=== PATIENT | female | born 1950 | race Caucasian/White ===

== ENCOUNTER 2024-01-07 11:02 | Inpatient (IN) | payer OTHER, SELFPAY ==
[2024-01-05] VITALS (7 sets, daily range): BP systolic 122–159; BP diastolic 65–100; BMI 33.5; BMI 33.4
[2024-01-05 15:42] LABS: % Basophils 1.3 % (0-2); % Eosinophils 2.1 % (0-6); % Immature Granulocytes 0.9 % (0-0.5); % Monocytes 8.4 % (1.7-9.3); % Neutrophils 75.3 % (42.2-75.2); Absolute Basophils 0.1 10^3/uL (0-0.2); Absolute Eosinophils 0.2 10^3/uL (0-0.7); Absolute Immature Granulocytes 0.1 10^3/uL (0-0.05); Absolute Lymphocytes 1.1 10^3/uL (1.2-3.4); Absolute Monocytes 0.8 10^3/uL (0.1-0.6); Absolute Neutrophils 6.8 10^3/uL (1.4-6.5); Hematocrit 41.7 % (37.0-47.0); Mean Corp Hgb Conc. 33.6 g/dL (33.0-37.0); Mean Corpuscular Hgb 29.4 pg (27.0-31.0); Mean Corpuscular Volume 87.6 fL (81.0-99.0); Mean Platelet Volume 9.8 fL (7.4-10.4); Nucleated Red Blood Cells % 0 %; Platelet Count 279 10^3/uL (130-400); Red Blood Cell Count 4.76 10^6/uL (4.20-5.40); Red Cell Dist. Width 12.7 % (11.5-14.5); White Blood Cell Count 9.1 10^3/uL (4.8-10.8)
[2024-01-05 16:02] LABS: ALT (SGPT) 18 U/L (0-35); AST (SGOT) 24 U/L (14-36); Albumin 3.9 g/dl (3.5-5.0); Alkaline Phosphatase 129 U/L (38-126); Blood Urea Nitrogen 9 mg/dl (7-17); Carbon Dioxide 26 mmol/L (22-30); Chloride 106 mmol/L (98-107); Glucose 86 mg/dl (70-99); Potassium 4.3 mmol/L (3.5-5.1); Sodium 143 mmol/L (135-145); Total Bilirubin 0.6 mg/dl (0.2-1.3); Total Protein 6.6 g/dl (6.3-8.2); eGFR > 60.00
[2024-01-05 16:07] LABS: Lactic Acid 0.8 mmol/L (0.7-2.0)
[2024-01-05 16:12] LABS: NT-proBNP 574 pg/ml
[2024-01-05] MEDS: LASIX 40 MG IV (18:43)
--- NOTE | 2024-01-05 19:16 | ED.GENMED ---
History of Present Illness
General
Chief Complaint: Swelling
Time Seen by Provider: 01/05/24 17:28
History of Present Illness
History of Present Illness:
73-year-old female with history of hypertension, hyperlipidemia, and chronic lower extremity edema presents to the emergency department for evaluation of worsening swelling and difficulty walking. She admits to poor compliance with her Lasix, it is
prescribed as 40 mg daily however she admits that she takes it less than twice weekly. She is having increased difficulty with ambulation and is falling recently. Daughter is also concerned about cognitive decline. No fevers or chills, no
shortness of breath
Past History
Past History
ED Past Medical History: HTN, Hypercholesterolemia and Other (Arthritis, restless leg syndrome); Negative Arrthythmia, Asthma or CAD
ED Past Surgical History: Cholecystectomy, Orthopedic (B/L hip/knee replacements) and Other (Gastric bypass)
Social History
Tobacco: Non-smoker
Alcohol: None
Personal:
Living: alone
Employment: Employed
Family History
Family History: Other (sister with carcinoma of the appendix ); Negative CAD
Review of Systems
Review of Systems
Allergies reviewed?: Yes
All Other Systems: ROS reviewed and negative except as documented in HPI and ROS
Phy Exam
Physical Exam
Physical Exam:
GEN: Well appearing, NAD, WDWN
HEENT: Oral mucosa moist, no scleral icterus
Cardiac: Regular rate
Lung: No respiratory distress, no tachypnea
MSK: Marked edema bilateral lower extremities with circumferential erythema likely venous stasis dermatitis, superficial ulcerations to the posterior aspects of both legs
Skin: Good color, no pallor or jaundice, no rashes
Neuro: AO x3, moves all extremities freely
Psych: Calm, cooperative
Scores
Heart Failure Risk
Heart Failure Risk Score: Not Applicable
Course
Orders/Labs/Results
Orders:
Orders
01/05/24 15:28
BNP [NT-proBNP] Urgent
Complete Blood Count/With Diff Urgent
Comprehensive Metabolic Panel Urgent
Lactic Acid Urgent
01/05/24 18:26
Furosemide [Lasix] 40 mg IV NOW STA
Abnormal Lab Results
01/05/24
15:28
Abs Immat Gran (auto) 0.1 H 10^3/uL
(0-0.05)
Absolute Neuts (auto) 6.8 H 10^3/uL
(1.4-6.5)
Absolute Lymphs (auto) 1.1 L 10^3/uL
(1.2-3.4)
Absolute Monos (auto) 0.8 H 10^3/uL
(0.1-0.6)
Immature Gran % 0.9 H %
(0-0.5)
Neutrophils % 75.3 H %
(42.2-75.2)
Lymphocytes % 12.0 L %
(20.5-51.1)
Alkaline Phosphatase 129 H U/L
(38-126)
01/05/24 15:28
01/05/24 15:28
Vital Signs
Initial and Last Documented VS:
Initial Vital Signs
Temp Pulse Resp BP Pulse Ox
98.3 F 71 18 142/100 98
01/05/24 15:21 01/05/24 15:21 01/05/24 15:21 01/05/24 15:21 01/05/24 15:21
Last Documented Vital Signs
Temp Pulse Resp BP Pulse Ox
98.3 F 76 18 159/68 100
01/05/24 15:21 01/05/24 18:43 01/05/24 18:02 01/05/24 18:43 01/05/24 18:05
MDM/Problems Addressed
MDM/Problems Addressed:
Patient has marked edema bilateral lower extremities. There are superficial wounds but no clear signs of cellulitis, I suspect the erythema is venous stasis dermatitis. This is all a product of her medication noncompliance. While she is medically
stable she is quite functionally impaired due to the degree of edema and thus is appropriate for admission for IV Lasix and PT/OT
*Critical Care Note
Total Time (30-74mins, 75-104mins- exclusive of procedures): Not Applicable
ED Attending Note
-
Portions of this chart may have been created with voice recognition software.� Occasional wrong word or��sound alike� substitutions may have occurred due to the inherent limitations of voice recognition software.
Discharge Plan
Departure
Patient Disposition: Admit
Date of Disposition: 01/05/24
Time of Disposition: 19:19
Admit to: Med/Surg
Presentation/result/management discussed w/ accepting MD/DO: Hospitalist
Discharge Problem:
Bilateral edema of lower extremity, Ambulatory dysfunction
Prescriptions:
No Action
furosemide 40 mg Tablet
40 mg PO DAILY
atorvastatin 20 mg Tablet
20 mg PO DAILY
gabapentin 400 mg Capsule
400 mg PO HS
amlodipine 5 mg Tablet
5 mg PO DAILY
cyanocobalamin (vitamin B-12) 500 mcg Tablet
500 mcg PO DAILY
sertraline 25 mg Tablet
25 mg PO DAILY
aspirin 81 mg Tablet
81 mg PO DAILY
atenolol 50 mg Tablet
50 mg PO HS
cholecalciferol (vitamin D3) 25 mcg (1,000 unit) Tablet
25 mcg PO DAILY
melatonin 10 mg Tablet
10 mg PO HS PRN (Reason: insomnia)
potassium chloride 20 mEq Tablet Extended Release
20 meq PO BID
Referrals:
KARIN LYON [Other]
Interventions
Interventions:
*Risk Screen - Suicide Last Done: 01/05/24 18:02
*General Assessment Last Done: 01/05/24 15:21
*Neglect/Abuse Screening Last Done: 01/05/24 18:02
ED- Fall Risk Assessment Last Done: 01/05/24 18:02
*ED COVID-19 Vaccine History Last Done: 01/05/24 18:02
ED- Cardiac Assessment Last Done: 01/05/24 18:02
ED- Pulmonary Assessment Last Done: 01/05/24 18:02
ED-Skin Assessment Last Done: 01/05/24 18:02
Discharge Date and Time
Print Language: ROMANSH
--- NOTE | 2024-01-05 19:32 | HPS.HSE ---
Family Physician
-
Family Physician: KARIN LYON
Chief Complaint
-
Ambulatory dysfunction, lower extremity edema
History of Present Illness
This is a 73-year-old female with past medical history of hypertension, hyperlipidemia, obesity, chronic lower extremity edema who presents emergency department with increasing leg swelling and weeping.
Patient has a past medical history of hypertension hyperlipidemia TIA and and since that the begin of the years chronic lower extremity edema. She reports that workup as being negative for congestive heart failure and for venous thromboembolism.
She denies having any change in the redness in the legs. There is no warmth. She denies any fevers or chills. Patient's family reports that she has not been compliant with diuretic regimen for lymphedema. Patient is noncompliant due to of the
lifestyle changes associated with the diuresis. She is unable to describe any significant changes in weight. She reports that she usually takes diuretics once or twice a week. Over the last few days she has not been able to ambulate due to the
swelling and weeping. She has physical therapy at home. She denies orthopnea PND shortness of breath at rest. She denies chest pain palpitations nausea vomiting.
Intermittent department the patient was afebrile, blood pressure was 160/68 pulse rate 76 and she was at 90% on room air. CBC was unremarkable. Likewise chemistries were unremarkable
Medical History
Past Medical History
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
Additional Past Medical History:
Chronic LE edema
Restless Leg syndrome
Past Surgical History: Reports Cholecystectomy and Orthopedic (TKA)
Additional Past Surgical History:
Gastric Bypass
Social History
Tobacco: Non-smoker
Alcohol: None
Drug: None
Personal:
Living: With Family
Employment: Employed
Family History
Family History: Not pertinent
Allergies / Home Medications
Allergies reflects when Allergies were last updated in [facility].
Home Medications with original date entered in [facility]
Allergy/Medication List:
Allergies
Allergy/AdvReac Type Severity Reaction Status Date / Time
No Known Allergies Allergy Verified 01/05/24 15:21
Home Medications
amlodipine 5 mg tablet 5 mg PO DAILY 01/05/24
aspirin 81 mg tablet 81 mg PO DAILY 01/05/24
atenolol 50 mg tablet 50 mg PO HS 01/05/24
atorvastatin 20 mg tablet 20 mg PO DAILY 01/05/24
cholecalciferol (vitamin D3) 25 mcg (1,000 unit) tablet 25 mcg PO DAILY 01/05/24
cyanocobalamin (vitamin B-12) 500 mcg tablet 500 mcg PO DAILY 01/05/24
furosemide 40 mg tablet 40 mg PO DAILY 01/05/24
gabapentin 400 mg capsule 400 mg PO HS 01/05/24
melatonin 10 mg tablet 10 mg PO HS PRN insomnia 01/05/24
potassium chloride 20 mEq tablet,extended release 20 meq PO BID 01/05/24
sertraline 25 mg tablet 25 mg PO DAILY 01/05/24
Review of Systems
-
Constitutional: Reports No Symptoms
EENT: Reports No Symptoms
Respiratory: Reports No Symptoms
Cardiac: Reports No Symptoms
Abdomen/GI: Reports No Symptoms
: Reports No Symptoms
Musculoskeletal: Reports Edema
Skin: Reports No Symptoms
Neurological: Reports No Symptoms
Endocrine: Reports No Symptoms
Hematologic/Lymphatic: Reports No Symptoms
Psych: Reports No Symptoms
Physical Exam
Vital Signs
Vital Signs
Temp Pulse Resp BP Pulse Ox
98.3 F 76 18 159/68 100
01/05/24 15:21 01/05/24 18:43 01/05/24 18:02 01/05/24 18:43 01/05/24 18:05
Physical Exam
General: Well Developed, Well Nourished, No Apparent Distress and Comfortable
HEENT: NormoCephalic, Anicteric, Moist mucous membranes and Atraumatic
Respiratory: Clear
Cardiac: S1/S2 and Regular Rhythm
Breast: Deferred by me
GI: Soft, Non Tender, Non Distended and Normal Bowel Sounds
Rectal: Deferred by Provider
Genito-urinary: Clear Urine
Musculoskeletal: No Clubbing, No Cyanosis, Edema, Left Lower Extremity (2+pitting and non-pitting with chronic skin changes) and Edema, Right Lower Extremity (2+ pitting and non-pitting, chronic skin changes)
Skin: Warm
Neuro: AO x 3
Hematologic/Lymphatic: No Lymphadenopathy
Psych: Calm
Laboratory Results
-
01/05/24 15:28
01/05/24 15:
Laboratory Results
Lactic Acid 0.8 mmol/L (0.7-2.0) 01/05/24 15:
Total Bilirubin 0.6 mg/dl (0.2-1.3) 01/05/24 15:28
AST 24 U/L (14-36) 01/05/24 15:
ALT 18 U/L (0-35) 01/05/24 15:
Alkaline Phosphatase 129 U/L (38-126) H 01/05/24 15:28
Data Reviewed
-
Lab Data: Labs Reviewed by me
Old Records: Reviewed
Impression/Plan
-
IMPRESSION:
73 y.o with chronic lymphedema non-compliant with medication regimen coming in with worsening edema, weeping and ambulatory dysfunction. No known history of CHF. Normal renal function. No liver disease. No h/o DVT.
PLAN:
1. Lymphedema - Patient non-compliant. She is hypervolemic and hypertensive. No CHF. Started about a year ago.
- admit to med/surg
- lasix 20mg iv q 12 with monitoring of daily weights and i/os
- 4 g sodium restriction
- daily k supplementation
- follow daily potassium and creatinine level
- elevate legs
- compression socks
- PT evaluation
2. HTN - Uncontrolled, non-compliant
- continue atenolol
- stopped amlodipine, started losartan due to swelling
3.TIA/CVA
- continue aspirin/statin
DVT PPX - lovenox sq
Code Status - Full Code
[2024-01-05] MEDS: KCL 20 MEQ PO (20:52)
--- NOTE | 2024-01-05 22:00 | PTCARENOTE ---
Pt received from ED on stretcher. Pt walked to bed with 1x assist with walker. Pt was informed about the use of the call carlson and the bed rails. Call carlson is in reach. Care is ongoing.
[2024-01-05] MEDS: NEURONTIN 400 MG PO (22:10)
[2024-01-05] MEDS: TENORMIN 50 MG PO (22:10)
--- NOTE | 2024-01-06 03:01 | PTCARENOTE ---
On admission, pt has reddness in skin folds and groin. Reached out to [facility], order placed for desenex by this RN.
[2024-01-06 07:00] VITALS: BP 132/65
[2024-01-06] MEDS: VITAMIN B-12 500 MCG PO (08:51)
[2024-01-06] MEDS: COZAAR 25 MG PO (08:52)
[2024-01-06] MEDS: ZOLOFT 25 MG PO (08:52)
[2024-01-06] MEDS: LOW STRENGTH ASPIRIN 81 MG PO (08:52)
[2024-01-06] MEDS: VITAMIN D3 (cholecalciferol) 25 MCG PO (08:52)
[2024-01-06] MEDS: LIPITOR 20 MG PO (08:52)
[2024-01-06] MEDS: KCL 20 MEQ PO ×2 (08:52→21:01)
[2024-01-06] MEDS: LASIX 20 MG IV ×2 (08:53→16:35)
[2024-01-06] MEDS: DESENEX/MITRAZOL/ZEASORB 1 APPLIC TOPICAL ×2 (08:58→21:01)
[2024-01-06 09:53] LABS: Blood Urea Nitrogen 9 mg/dl (7-17); Calcium 9.1 mg/dl (8.4-10.2); Carbon Dioxide 30 mmol/L (22-30); Chloride 102 mmol/L (98-107); Estimated Creatinine Clearance 81 ml/min; Glucose 90 mg/dl (70-99); Magnesium 2.1 mg/dl (1.6-2.3); Potassium 4.4 mmol/L (3.5-5.1); Sodium 143 mmol/L (135-145); eGFR > 60.00
[2024-01-06 10:16] VITALS: BP 146/83; PULSE 53; O2SAT 97
--- NOTE | 2024-01-06 12:40 | W.PN.HOSP.TC ---
Today's Communication/Plan
-
iv diuresis
wound care
SNF planning
Assessment / Plan
Assessment / Plan
Physical Exam
General: Well Developed, Well Nourished, No Apparent Distress and Comfortable
HEENT: NormoCephalic, Anicteric, Moist mucous membranes and Atraumatic
Respiratory: Clear
Cardiac: S1/S2 and Regular Rhythm
Breast: Deferred by me
GI: Soft, Non Tender, Non Distended and Normal Bowel Sounds
Rectal: Deferred by Provider
Genito-urinary: Clear Urine
Musculoskeletal: No Clubbing, No Cyanosis, Edema, Left Lower Extremity (2+pitting and non-pitting with chronic skin changes) and Edema, Right Lower Extremity (2+ pitting and non-pitting, chronic skin changes)
Skin: Warm
Neuro: AO x 3
Hematologic/Lymphatic: No Lymphadenopathy
Psych: Calm
73 y.o with chronic lymphedema non-compliant with medication regimen coming in with worsening edema, weeping and ambulatory dysfunction. No known history of CHF. Normal renal function. No liver disease. No h/o DVT.
PLAN:
#Lymphedema - Patient non-compliant. She is hypervolemic and hypertensive. No CHF. Started about a year ago.
-weeping
- lasix 20mg iv q 12 with monitoring of daily weights and i/os
- 4 g sodium restriction
- daily k supplementation
- follow daily potassium and creatinine level
- elevate legs
- compression socks
- wound care
- PT evaluation - SNF
-stop amlodipine
# HTN - Uncontrolled, non-compliant
- continue atenolol
- stopped amlodipine, started losartan due to swelling
3.TIA/CVA
- continue aspirin/statin
DVT PPX - lovenox sq
Code Status - Full Code
Anticipated Discharge: 24 - 48 hours
Subjective/Interval History
-
Date of Service: January 06, 2024
no acute events
Objective Data
-
Labs:
Laboratory Results
01/06/24
08:24
Sodium 143
Potassium 4.4
Chloride 102
Carbon Dioxide 30
BUN 9
Creatinine 0.7
Glucose 90
Calcium 9.1
Vital Signs:
Vital Signs
Temp Pulse Resp BP Pulse Ox
97.7 F 57 16 132/65 100
01/06/24 07:00 01/06/24 08:52 01/06/24 07:00 01/06/24 08:52 01/06/24 07:00
I&O
01/05/24 01/06/24 01/07/24
06:59 06:59 06:59
Intake Total 200 / 200
Output Total 2049
Balance -1849 / -1849
Review of Systems
-
History Source: Patient
All other systems: Not reviewed unless documented
Data Reviewed
-
Labs: Labs Reviewed by me
--- NOTE | 2024-01-06 14:55 | CM ---
Addendum entered by Francia Cooney RN 01/06/24 15:06:
[facility] letter given pt declined to sign,
Original Note:
Alert awake oriented patient who lives with her son Kenroy in a condo with one step to enter.She said she is independent in driving and in all activities of daily living.Will need PT for dc plan.She uses a walker .
Never had [facility]
Pharmacy [facility]
PCP DR Leighton Garcia
PLAN will need PT for dc planning
[2024-01-06 15:00] VITALS: BP 105/66
[2024-01-06] MEDS: LOVENOX 40 MG SC (17:09)
[2024-01-06] MEDS: TENORMIN 50 MG PO (21:01)
[2024-01-06] MEDS: NEURONTIN 400 MG PO (21:02)
[2024-01-06 23:02] VITALS: BP 102/54
[2024-01-07 06:49] LABS: Hematocrit 41.3 % (37.0-47.0); Mean Corp Hgb Conc. 33.9 g/dL (33.0-37.0); Mean Corpuscular Hgb 30.4 pg (27.0-31.0); Mean Corpuscular Volume 89.6 fL (81.0-99.0); Mean Platelet Volume 10.3 fL (7.4-10.4); Platelet Count 267 10^3/uL (130-400); Red Blood Cell Count 4.61 10^6/uL (4.20-5.40); Red Cell Dist. Width 12.7 % (11.5-14.5); White Blood Cell Count 9.4 10^3/uL (4.8-10.8)
[2024-01-07 07:16] VITALS: BP 123/59
[2024-01-07 07:31] LABS: Blood Urea Nitrogen 17 mg/dl (7-17); Calcium 8.8 mg/dl (8.4-10.2); Carbon Dioxide 26 mmol/L (22-30); Chloride 102 mmol/L (98-107); Estimated Creatinine Clearance 81 ml/min; Glucose 100 mg/dl (70-99); Potassium 4.5 mmol/L (3.5-5.1); Sodium 140 mmol/L (135-145); eGFR > 60.00
[2024-01-07] MEDS: LOW STRENGTH ASPIRIN 81 MG PO (07:42)
[2024-01-07] MEDS: LASIX 20 MG IV ×2 (07:42→15:34)
[2024-01-07] MEDS: COZAAR 25 MG PO (07:42)
[2024-01-07] MEDS: LIPITOR 20 MG PO (07:43)
[2024-01-07] MEDS: KCL 20 MEQ PO ×2 (07:43→21:29)
[2024-01-07] MEDS: VITAMIN D3 (cholecalciferol) 25 MCG PO (07:43)
[2024-01-07] MEDS: DESENEX/MITRAZOL/ZEASORB 1 APPLIC TOPICAL ×2 (07:50→21:28)
[2024-01-07] MEDS: VITAMIN B-12 500 MCG PO (07:58)
[2024-01-07] MEDS: ZOLOFT 25 MG PO (07:59)
--- NOTE | 2024-01-07 10:17 | W.PN.HOSP.TC ---
Today's Communication/Plan
-
dispo planning
Assessment / Plan
Assessment / Plan
Physical Exam
General: Well Developed, Well Nourished, No Apparent Distress and Comfortable
HEENT: NormoCephalic, Anicteric, Moist mucous membranes and Atraumatic
Respiratory: Clear
Cardiac: S1/S2 and Regular Rhythm
Breast: Deferred by me
GI: Soft, Non Tender, Non Distended and Normal Bowel Sounds
Rectal: Deferred by Provider
Genito-urinary: Clear Urine
Musculoskeletal: No Clubbing, No Cyanosis, Edema, Left Lower Extremity (2+pitting and non-pitting with chronic skin changes) and Edema, Right Lower Extremity (2+ pitting and non-pitting, chronic skin changes)
Skin: Warm
Neuro: AO x 3
Hematologic/Lymphatic: No Lymphadenopathy
Psych: Calm
73 y.o with chronic lymphedema non-compliant with medication regimen coming in with worsening edema, weeping and ambulatory dysfunction. No known history of CHF. Normal renal function. No liver disease. No h/o DVT.
PLAN:
#Lymphedema - with increased LE swelling, not compliant with Lasix and recent travel
-weeping
- lasix 20mg iv q 12 with monitoring of daily weights and i/os - good response
- 4 g sodium restriction
- daily k supplementation
- follow daily potassium and creatinine level
- elevate legs
- compression socks
- wound care
- PT evaluation - SNF
-stop amlodipine
# HTN - Uncontrolled, non-compliant
- continue atenolol
- stopped amlodipine, started losartan due to swelling
3.TIA/CVA
- continue aspirin/statin
DVT PPX - lovenox sq
Code Status - Full Code
Anticipated Discharge: Within 24 hours
Subjective/Interval History
-
Date of Service: January 07, 2024
LE swelling improving and weakness improving
responding to lasix
was started on lasix 40 2 months ago, prior was not on lasix
Objective Data
-
Labs:
Laboratory Results
01/07/24
05:48
WBC 9.4
Hgb 14.0
Hct 41.3
Plt Count 267
Sodium 140
Potassium 4.5
Chloride 102
Carbon Dioxide 26
BUN 17
Creatinine 0.7
Glucose 100 H
Calcium 8.8
Vital Signs:
Vital Signs
Temp Pulse Resp BP Pulse Ox
98.7 F 61 18 123/59 100
01/07/24 07:16 01/07/24 07:16 01/07/24 07:16 01/07/24 07:16 01/07/24 07:16
I&O
01/06/24 01/07/24 01/08/24
06:59 06:59 06:59
Intake Total 200 / 200 720 / 720
Output Total 2049 / 2049 2400 / 2400
Balance -1850 / -1850 -1680 / -1680
Review of Systems
-
History Source: Patient
All other systems: Reviewed and negative
Data Reviewed
-
Diagnostic Radiology: Report Reviewed by me
Labs: Labs Reviewed by me
--- NOTE | 2024-01-07 14:47 | WOUNDNOTE ---
[facility] RN NOTE: Reviewed chart, met with patient. Patient has bilateral lymphedema with posterior open wounds that appear to be open blisters. Local wound care provided as ordered. 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 Patient reports being independent at home prior to
admission. She reports good appetite and is on a [employer] Accumax. Patient lives in [place] in will locate a lymphedema clinic in the area. Will continue to follow as needed. Will confirm orders with hospitalist and update orders. JOS Quintero
updated.
[2024-01-07 15:33] VITALS: BP 109/54
--- NOTE | 2024-01-07 16:44 | WOUNDNOTE ---
LEFT POSTERIOR EXTREMITY
--- NOTE | 2024-01-07 16:44 | WOUNDNOTE ---
RIGHT POSTERIOR EXTREMITY
[2024-01-07] MEDS: LOVENOX 40 MG SC (18:07)
[2024-01-07] MEDS: NEURONTIN 400 MG PO (21:29)
[2024-01-07] MEDS: TENORMIN 50 MG PO (21:29)
[2024-01-07 23:05] VITALS: BP 118/67
[2024-01-08 06:00] VITALS: BMI 32.6
[2024-01-08 07:29] VITALS: BP 130/70
[2024-01-08 08:27] LABS: Blood Urea Nitrogen 24 mg/dl (7-17); Calcium 8.7 mg/dl (8.4-10.2); Carbon Dioxide 27 mmol/L (22-30); Chloride 101 mmol/L (98-107); Estimated Creatinine Clearance 70 ml/min; Glucose 106 mg/dl (70-99); Potassium 4.6 mmol/L (3.5-5.1); Sodium 140 mmol/L (135-145); eGFR > 60.00
[2024-01-08] MEDS: LASIX 20 MG IV ×2 (08:59→17:29)
[2024-01-08] MEDS: KCL 20 MEQ PO ×2 (09:00→21:09)
[2024-01-08] MEDS: LIPITOR 20 MG PO (09:00)
[2024-01-08] MEDS: VITAMIN D3 (cholecalciferol) 25 MCG PO (09:00)
[2024-01-08] MEDS: COZAAR 25 MG PO (09:00)
[2024-01-08] MEDS: VITAMIN B-12 500 MCG PO (09:01)
[2024-01-08] MEDS: DESENEX/MITRAZOL/ZEASORB 1 APPLIC TOPICAL ×2 (09:01→21:09)
[2024-01-08] MEDS: ZOLOFT 25 MG PO (09:01)
[2024-01-08] MEDS: LOW STRENGTH ASPIRIN 81 MG PO (09:01)
--- NOTE | 2024-01-08 10:39 | W.PN.HOSP.TC ---
Today's Communication/Plan
-
stable for DC to SNF today
Assessment / Plan
Assessment / Plan
Physical Exam
General: Well Developed, Well Nourished, No Apparent Distress and Comfortable
HEENT: NormoCephalic, Anicteric, Moist mucous membranes and Atraumatic
Respiratory: Clear
Cardiac: S1/S2 and Regular Rhythm
Breast: Deferred by me
GI: Soft, Non Tender, Non Distended and Normal Bowel Sounds
Rectal: Deferred by Provider
Genito-urinary: Clear Urine
Musculoskeletal: No Clubbing, No Cyanosis,LE swelling improving, legs wrapped
Skin: Warm
Neuro: AO x 3
Hematologic/Lymphatic: No Lymphadenopathy
Psych: Calm
73 y.o with chronic lymphedema non-compliant with medication regimen coming in with worsening edema, weeping and ambulatory dysfunction. No known history of CHF. Normal renal function. No liver disease. No h/o DVT.
PLAN:
#Lymphedema - with increased LE swelling, not compliant with Lasix and recent travel
-weeping
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
- 4 g sodium restriction
- daily k supplementation
- follow daily potassium and creatinine level
- elevate legs
- compression socks
- wound care
- PT evaluation - SNF
-stop amlodipine
# HTN - Uncontrolled, non-compliant
- continue atenolol
- stopped amlodipine, started losartan due to swelling
3.TIA/CVA
- continue aspirin/statin
DVT PPX - lovenox sq
Code Status - Full Code
Anticipated Discharge: Today
Subjective/Interval History
-
Date of Service: January 08, 2024
legs continue to decrease in size
no chest pain or shortness of breath
feels ready to leave hospital today
Objective Data
-
Labs:
Laboratory Results
01/08/24
07:07
Sodium 140
Potassium 4.6
Chloride 101
Carbon Dioxide 27
BUN 24 H
Creatinine 0.8
Glucose 106 H
Calcium 8.7
Vital Signs:
Vital Signs
Temp Pulse Resp BP Pulse Ox
98.5 F 65 20 130/70 94
01/08/24 07:29 01/08/24 07:29 01/08/24 07:29 01/08/24 07:29 01/08/24 07:29
I&O
01/07/24 01/08/24 01/09/24
06:59 06:59 06:59
Intake Total 720 / 720 480 / 480
Output Total 2400 / 2400 150 / 150
Balance -1680 / -1680 330 / 330
Review of Systems
-
History Source: Patient
All other systems: Reviewed and negative
Data Reviewed
-
Diagnostic Radiology: Report Reviewed by me
Labs: Labs Reviewed by me
--- NOTE | 2024-01-08 10:44 | W.DS.TRANS ---
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
-
Discharge Instructions:
Discharge Diagnosis/Procedures bilateral lower extremity lymphedema/swelling
resulting in weakness and ambulatory dysfunction
Diet 2 Gram Sodium,Restrict fluids to 48 oz
Activity As tolerated
Driving Restrictions Not until seen by your Dr
Bathing Restrictions None
Blood Work BMP in one week
Other Services PT,OT
Specialty Instructions Weigh Daily
Instructions:
Stand-Alone Forms:
Changes to Home Medications: Yes
Discharge Medications:
DC Medications w/original date entered in [employer]
aspirin 81 mg chewable tablet 81 mg PO DAILY Blood Clot Prevention/Tx 01/05/24
atenolol 50 mg tablet 50 mg PO HS Blood Pressure 01/05/24
atorvastatin 20 mg tablet 20 mg PO DAILY High Cholesterol 01/05/24
cholecalciferol (vitamin D3) 25 mcg (1,000 unit) tablet 25 mcg PO DAILY Supplement 01/05/24
cyanocobalamin (vitamin B-12) 500 mcg tablet 500 mcg PO DAILY Supplement 01/05/24
furosemide 40 mg tablet 40 mg PO DAILY Fluid Retention/Swelling 01/05/24
gabapentin 400 mg capsule 400 mg PO HS neuropathic pain 01/05/24
melatonin 10 mg tablet 10 mg PO HS PRN insomnia 01/05/24
potassium chloride 20 mEq tablet,extended release(part/cryst) 20 meq PO BID Electrolyte Repletion 01/05/24
sertraline 25 mg tablet 25 mg PO DAILY Depression 01/05/24
acetaminophen 325 mg tablet 650 mg (2 x 325 mg) PO Q4HPRN PRN mild pain/MANN/temp> 100.4F #30 tabs 01/08/24
losartan 25 mg tablet 25 mg PO DAILY #30 tabs 01/08/24
miconazole nitrate 2 % topical powder (Miconazorb AF) 1 applic topical BID #85 grams 01/08/24
Home Medication Changes
Stop Amlodipine (this can contribute to lower extremity swelling). You are started on a new blood pressure pill, Losartan. We will get labs to monitor electrolytes in one week.
Resume Lasix.
Pending Results: No
[2024-01-08 11:05] VITALS: BP 124/67; PULSE 67
[2024-01-08] MEDS: FLUAD (65 yr+) 2024-2025 FORMULA 0.5 ML IM (12:16)
--- NOTE | 2024-01-08 13:09 | W.DCSUMMARY ---
Discharge Summary
Discharge Data
Date of Admission: 01/07/24
Date of Discharge: 01/08/24
-
Pending Results: No
Hospital Course
Discharging Physician : Dr. Samantha Villar
Disposition : SNF
Principal Discharge diagnosis : Lower extremity swelling in setting of lymphedema and non-compliance with lasix leading to ambulatory dysfunction
Hospital Course :
This is a 73-year-old female with past medical history of hypertension, hyperlipidemia, obesity, chronic lower extremity edema who presents emergency department with increasing leg swelling and weeping. She reports being non-compliant with lasix.
No respiratory complaints. Work-up in past negative for CHF or VTE.
Triage vitals and labs stable. She was admitted to medicine and given IV lasix. Swelling and weakness improved. Labs remained stable. 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
Her amlodipine was stopped and replaced with Losartan given swelling.
Time spent on discharge was 31 minutes.
Important imaging findings :
Procedure findings :
Discharge Plan
-
Patient Disposition: Shelter/SNF
Discharge Diagnosis/Procedures: bilateral lower extremity lymphedema/swelling resulting in weakness and ambulatory dysfunction
Diet: 2 Gram Sodium and Restrict fluids to 48 oz
Activity: As tolerated
Driving Restrictions: Not until seen by your Dr
Bathing Restrictions: None
Blood Work: BMP in one week
Other Services: PT and OT
Specialty Instructions: Weigh Daily- Call MD for wt gain/loss 3 lbs overnight/5 lbs in 1 week
Activity Restrictions/Additional Instructions:
Wound Care Instructions Bilateral LE posterior wounds- Clean with normal saline or soap and water. Apply alginate and silicone foam. Change Q 48 hours and PRN if loose or for drainage.
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
Locate a lymphedema clinic in the [facility].
Referrals:
UNKNOWN,NO INTERVIEW [Family Provider] - in less than 1 week
Additional Discharge Medication Instructions: Stop Amlodipine (this can contribute to lower extremity swelling). You are started on a new blood pressure pill, Losartan. We will get labs to monitor electrolytes in one week.
Resume Lasix.
Prescriptions:
New
miconazole nitrate [Miconazorb AF] 2 % Powder
1 applic topical BID Qty: 85 0RF
losartan 25 mg Tablet
25 mg PO DAILY Qty: 30 0RF
acetaminophen 325 mg Tablet
650 mg PO Q4HPRN PRN (Reason: mild pain/MANN/temp> 100.4F) Qty: 30 0RF
Continued
furosemide 40 mg Tablet
40 mg PO DAILY
atorvastatin 20 mg Tablet
20 mg PO DAILY
gabapentin 400 mg Capsule
400 mg PO HS
cyanocobalamin (vitamin B-12) 500 mcg Tablet
500 mcg PO DAILY
sertraline 25 mg Tablet
25 mg PO DAILY
atenolol 50 mg Tablet
50 mg PO HS
cholecalciferol (vitamin D3) 25 mcg (1,000 unit) Tablet
25 mcg PO DAILY
melatonin 10 mg Tablet
10 mg PO HS PRN (Reason: insomnia)
potassium chloride 20 mEq Tablet,Er Particles/Crystals
20 meq PO BID
aspirin 81 mg Tablet,Chewable
81 mg PO DAILY
Discontinued
amlodipine 5 mg Tablet
5 mg PO DAILY
Discharge Orders:
Discharge Patient (As Directed); Ordered 01/08/24
Ordered By: Samantha Villar
Discharge Date and Time
Print Language: SWISS
[2024-01-08 15:17] VITALS: BP 110/63
--- NOTE | 2024-01-08 16:31 | CM ---
Received notification that patient is medically stable for discharge. Reviewed PT, indication is for SNF. Met with patient who stated that she would like to return home and her son is there who can supervise her. Requested permission to talk to
patient's son to determine that he could handle the scope of patient's care. Patient stated that would be fine.
Placed a call to patient's son and daughter in law who stated that patient lives with her other son and he is not going to be able to supervise patient due to his own limitations. Patient's daughter in law requested that patient transfers to SNF and
selected: [facility] and [facility]. Will send referrals.
Patient aware and agreeable to plan.
Plan: Case management will continue to follow and assist with discharge planning. SNF. Patient will need auth. Attending updated.
[2024-01-08] MEDS: LOVENOX 40 MG SC (17:29)
[2024-01-08] MEDS: NEURONTIN 400 MG PO (21:09)
[2024-01-08] MEDS: TENORMIN 50 MG PO (21:10)
[2024-01-08 23:18] VITALS: BP 119/62
[2024-01-09 05:43] VITALS: BMI 32.1
[2024-01-09 07:47] VITALS: BP 121/67
[2024-01-09] MEDS: VITAMIN B-12 500 MCG PO (08:52)
[2024-01-09] MEDS: ZOLOFT 25 MG PO (08:53)
[2024-01-09] MEDS: KCL 20 MEQ PO ×2 (08:53→19:58)
[2024-01-09] MEDS: LOW STRENGTH ASPIRIN 81 MG PO (08:53)
[2024-01-09] MEDS: LIPITOR 20 MG PO (08:53)
[2024-01-09] MEDS: VITAMIN D3 (cholecalciferol) 25 MCG PO (08:53)
[2024-01-09] MEDS: COZAAR 25 MG PO (08:53)
[2024-01-09] MEDS: LASIX 20 MG IV (08:53)
[2024-01-09] MEDS: DESENEX/MITRAZOL/ZEASORB 1 APPLIC TOPICAL ×2 (09:58→19:58)
--- NOTE | 2024-01-09 10:47 | W.PN.HOSP.TC ---
Today's Communication/Plan
-
dispo planning
Assessment / Plan
Assessment / Plan
Physical Exam
General: Well Developed, Well Nourished, No Apparent Distress and Comfortable
HEENT: NormoCephalic, Anicteric, Moist mucous membranes and Atraumatic
Respiratory: Clear
Cardiac: S1/S2 and Regular Rhythm
Breast: Deferred by me
GI: Soft, Non Tender, Non Distended and Normal Bowel Sounds
Rectal: Deferred by Provider
Genito-urinary: Clear Urine
Musculoskeletal: No Clubbing, No Cyanosis,LE swelling improving, legs wrapped
Skin: Warm
Neuro: AO x 3
Hematologic/Lymphatic: No Lymphadenopathy
Psych: Calm
73 y.o with chronic lymphedema non-compliant with medication regimen coming in with worsening edema, weeping and ambulatory dysfunction. No known history of CHF. Normal renal function. No liver disease. No h/o DVT.
PLAN:
#Lymphedema - with increased LE swelling, not compliant with Lasix and recent travel
-weeping
- lasix 20mg iv q 12 with monitoring of daily weights and i/os - good response --> Ok for DC and transition to HOUSE DESIGNER lasix 40mg PO QD
- 4 g sodium restriction
- daily k supplementation
- follow daily potassium and creatinine level
- elevate legs
- compression socks
- wound care
- PT evaluation - SNF
-stop amlodipine
# HTN - Uncontrolled, non-compliant
- continue atenolol
- stopped amlodipine, started losartan due to swelling
3.TIA/CVA
- continue aspirin/statin
DVT PPX - lovenox sq
Code Status - Full Code
Anticipated Discharge: Within 24 hours
Subjective/Interval History
-
Date of Service: January 09, 2024
leg swelling improving
no new complaints
Objective Data
-
Labs:
Laboratory Results
01/09/24
10:44
Sodium Pending
Potassium Pending
Chloride Pending
Carbon Dioxide Pending
BUN Pending
Creatinine Pending
Glucose Pending
Calcium Pending
Vital Signs:
Vital Signs
Temp Pulse Resp BP Pulse Ox
98.5 F 57 16 121/67 98
01/09/24 07:47 01/09/24 07:47 01/09/24 07:47 01/09/24 07:47 01/09/24 07:47
I&O
01/08/24 01/09/24 01/10/24
06:59 06:59 06:59
Intake Total 1919 / 1919
Output Total 150 / 150
Balance 1769 / 1769
Review of Systems
-
History Source: Patient
All other systems: Reviewed and negative
Data Reviewed
-
Diagnostic Radiology: Report Reviewed by me
Labs: Labs Reviewed by me
--- NOTE | 2024-01-09 11:00 | CM ---
Addendum entered by KAYKAY Qureshi 01/09/24 17:16:
Reference number for case [id number]
Faxed over clinical. As of yet have not received form that Ivy stated she will send over. If no form received by am, will call to attempt to obtain it again.
Addendum entered by KAYKAY Qureshi 01/09/24 15:15:
Placed a call to patient's insurance, [employer], and spoke with a investment representative named, Ivy, who stated to fax all clinical and form that she faxed to [employer] to [phone]. Will fax all requested clinical to the number above.
Addendum entered by KAYKAY Qureshi 01/09/24 14:12:
Reviewed chart, received call from Laverne in admissions at [facility] [place] who stated that they can accept patient.
NPI numbers for auth request, [facility] [place] [id number] Dr. Olivas [id number]
# for report [phone] and [phone]
Will call to initiate auth.
Original Note:
Faxed all referrals to requested facilities. Awaiting determination.
Plan: Case management will continue to follow and assist with discharge planning. Transfer to SNF. When one can accept patient and auth is obtained.
[2024-01-09 12:57] LABS: Blood Urea Nitrogen 24 mg/dl (7-17); Calcium 9.6 mg/dl (8.4-10.2); Carbon Dioxide 30 mmol/L (22-30); Chloride 97 mmol/L (98-107); Estimated Creatinine Clearance 70 ml/min; Glucose 69 mg/dl (70-99); Potassium 4.5 mmol/L (3.5-5.1); Sodium 139 mmol/L (135-145); eGFR > 60.00
[2024-01-09 15:42] VITALS: BP 97/66; PULSE 59
[2024-01-09 15:50] VITALS: BP 97/66
[2024-01-09] MEDS: TYLENOL 650 MG PO (17:53)
[2024-01-09] MEDS: LOVENOX 40 MG SC (17:54)
[2024-01-09] MEDS: TENORMIN 50 MG PO (21:23)
[2024-01-09] MEDS: NEURONTIN 400 MG PO (21:23)
[2024-01-09 23:03] VITALS: BP 102/47
[2024-01-10 06:00] VITALS: BMI 31.9
[2024-01-10 07:00] VITALS: BP 116/53
[2024-01-10] MEDS: VITAMIN B-12 500 MCG PO ×2 (08:43→08:45)
[2024-01-10] MEDS: LOW STRENGTH ASPIRIN 81 MG PO (08:45)
[2024-01-10] MEDS: KCL 20 MEQ PO ×2 (08:45→20:38)
[2024-01-10] MEDS: ZOLOFT 25 MG PO (08:45)
[2024-01-10] MEDS: LIPITOR 20 MG PO (08:48)
[2024-01-10] MEDS: COZAAR 25 MG PO (08:48)
[2024-01-10] MEDS: LASIX 40 MG PO (08:48)
[2024-01-10] MEDS: VITAMIN D3 (cholecalciferol) 25 MCG PO (08:48)
[2024-01-10] MEDS: DESENEX/MITRAZOL/ZEASORB 1 APPLIC TOPICAL ×2 (08:53→20:38)
--- NOTE | 2024-01-10 09:25 | W.PN.HOSP.TC ---
Today's Communication/Plan
-
dispo planning
Assessment / Plan
Assessment / Plan
Physical Exam
General: Well Developed, Well Nourished, No Apparent Distress and Comfortable
HEENT: NormoCephalic, Anicteric, Moist mucous membranes and Atraumatic
Respiratory: Clear
Cardiac: S1/S2 and Regular Rhythm
Breast: Deferred by me
GI: Soft, Non Tender, Non Distended and Normal Bowel Sounds
Rectal: Deferred by Provider
Genito-urinary: Clear Urine
Musculoskeletal: No Clubbing, No Cyanosis,LE swelling improving, legs wrapped
Skin: Warm
Neuro: AO x 3
Hematologic/Lymphatic: No Lymphadenopathy
Psych: Calm
73 y.o with chronic lymphedema non-compliant with medication regimen coming in with worsening edema, weeping and ambulatory dysfunction. No known history of CHF. Normal renal function. No liver disease. No h/o DVT.
PLAN:
#Lymphedema - with increased LE swelling, not compliant with Lasix and recent travel
-weeping
-s/p lasix 20mg iv q 12 with monitoring of daily weights and i/os - good response --> Ok for DC and transition to HIGH SCHOOL COORDINATOR lasix 40mg PO QD
- 4 g sodium restriction
- daily k supplementation
- follow daily potassium and creatinine level
- elevate legs
- compression socks
- wound care
- PT evaluation - SNF
-stop amlodipine
# HTN - Uncontrolled, non-compliant
- continue atenolol
- stopped amlodipine, started losartan due to swelling
3.TIA/CVA
- continue aspirin/statin
DVT PPX - lovenox sq
Code Status - Full Code
Anticipated Discharge: Within 24 hours
Subjective/Interval History
-
Date of Service: January 10, 2024
no new complaints
responding to oral lasix
Objective Data
-
Vital Signs:
Vital Signs
Temp Pulse Resp BP Pulse Ox
98.3 F 52 16 116/53 96
01/10/24 07:00 01/10/24 07:00 01/10/24 07:00 01/10/24 07:00 01/10/24 07:00
I&O
01/09/24 01/10/24 01/11/24
06:59 06:59 06:59
Intake Total 1920 / 1920 1140 / 1140
Output Total 150 / 150
Balance 1770 / 1770 1140 / 1140
Review of Systems
-
History Source: Patient
All other systems: Reviewed and negative
Data Reviewed
-
Diagnostic Radiology: Report Reviewed by me
Labs: Labs Reviewed by me
--- NOTE | 2024-01-10 10:21 | CM ---
Reviewed chart, placed a call to [employer] [facility] to f/u on potential authorization. Spoke with a personnel representative named, 'Ingrid Vidal' who stated that all clinical has been received and review is still in progress. Ingrid was asked about the form that was referenced
by previous personnel representative, Ivy, and she stated that all the information that they need has been faxed and confirmed receipt. Will keep calling to determine status.
Plan: Case management will continue to follow and assist with discharge planning. Hopeful transfer to [facility] upon obtaining auth.
[2024-01-10 15:00] VITALS: BP 117/68
[2024-01-10 16:41] VITALS: BP 124/68; PULSE 54
[2024-01-10] MEDS: LOVENOX 40 MG SC (17:19)
[2024-01-10] MEDS: TENORMIN 50 MG PO (21:09)
[2024-01-10] MEDS: NEURONTIN 400 MG PO (21:09)
[2024-01-10 22:58] VITALS: BP 107/52
[2024-01-11 06:00] VITALS: BMI 32.1
[2024-01-11 07:30] VITALS: BP 110/46
[2024-01-11] MEDS: KCL 20 MEQ PO ×2 (08:54→19:56)
[2024-01-11] MEDS: LOW STRENGTH ASPIRIN 81 MG PO (08:55)
[2024-01-11] MEDS: VITAMIN D3 (cholecalciferol) 25 MCG PO (08:55)
[2024-01-11] MEDS: COZAAR 25 MG PO (08:55)
[2024-01-11] MEDS: ZOLOFT 25 MG PO (08:55)
[2024-01-11] MEDS: LIPITOR 20 MG PO (08:55)
[2024-01-11] MEDS: DESENEX/MITRAZOL/ZEASORB 1 APPLIC TOPICAL ×2 (09:01→19:56)
[2024-01-11] MEDS: LASIX 40 MG PO (09:01)
--- NOTE | 2024-01-11 10:26 | W.PN.HOSP.TC ---
Today's Communication/Plan
-
dispo planning
Assessment / Plan
Assessment / Plan
Physical Exam
General: no acute distress
Respiratory: Clear
Cardiac: S1/S2 and Regular Rhythm
GI: Soft, Non Tender, Non Distended and Normal Bowel Sounds
Musculoskeletal: No Clubbing, No Cyanosis,LE swelling improving, legs wrapped
Neuro: AO x 3
Psych: Calm
73 y.o with chronic lymphedema non-compliant with medication regimen coming in with worsening edema, weeping and ambulatory dysfunction. No known history of CHF. Normal renal function. No liver disease. No h/o DVT.
PLAN:
#Lymphedema - with increased LE swelling, not compliant with Lasix and recent travel
-weeping
-s/p lasix 20mg iv q 12 with monitoring of daily weights and i/os - good response --> Ok for DC and transition to MECHANICAL PROCESS ENGINEER lasix 40mg PO QD
- 4 g sodium restriction
- daily k supplementation
- follow daily potassium and creatinine level
- elevate legs
- compression socks
- wound care
- PT evaluation - SNF
-stop amlodipine
# HTN - Uncontrolled, non-compliant
- continue atenolol
- stopped amlodipine, started losartan due to swelling
3.TIA/CVA
- continue aspirin/statin
DVT PPX - lovenox sq
Code Status - Full Code
Anticipated Discharge: Within 24 hours
Subjective/Interval History
-
Date of Service: January 11, 2024
no new medical complaints
Objective Data
-
Vital Signs:
Vital Signs
Temp Pulse Resp BP Pulse Ox
97.8 F 50 16 110/46 95
01/11/24 07:30 01/11/24 07:30 01/11/24 07:30 01/11/24 07:30 10/04/24 07:30
I&O
01/10/24 01/11/24 01/12/24
06:59 06:59 06:59
Intake Total 1140 / 1140 200 / 200
Balance 1140 / 1140 200 / 200
Review of Systems
-
History Source: Patient
All other systems: Reviewed and negative
Data Reviewed
-
Diagnostic Radiology: Report Reviewed by me
Labs: Labs Reviewed by me
[2024-01-11 16:00] VITALS: BP 118/62
--- NOTE | 2024-01-11 16:36 | CM ---
Addendum entered by KAYKAY Qureshi 01/11/24 17:48:
Placed a call to patient's daughter. She was updated and understands that patient is still awaiting auth to go to SNF.
Original Note:
Placed a call to patient's insurance. CM was rerouted to 5 different departments. No medical service representative was able to provide information regarding authorization. Call was then transferred to another department and answered by a medical service representative named, Lois
(call reference number-[id number]). Lois stated that the fax number that was provided to send clinical to, was incorrect and that the correct number to fax clinical information is, .
Faxed clinical to that number.
[employer] community organizer, RN for patient, and client integration manager all updated as to status as well as attending.
CM director was advised as well as this is now day 3 with no authorization.
Placed a call to Laverne in admissions at [facility] who stated that she will hold the bed.
Plan: Case management will continue to follow and assist with discharge planning. Hopeful Auth for patient to get to [facility].
[2024-01-11] MEDS: LOVENOX 40 MG SC (17:19)
[2024-01-11 23:00] VITALS: BP 117/59
[2024-01-11] MEDS: TENORMIN 50 MG PO (23:10)
[2024-01-11] MEDS: NEURONTIN 400 MG PO (23:10)
[2024-01-12 06:00] VITALS: BMI 32.2
[2024-01-12 08:00] VITALS: BP 106/52
[2024-01-12] MEDS: LOW STRENGTH ASPIRIN 81 MG PO (09:04)
[2024-01-12] MEDS: KCL 20 MEQ PO ×2 (09:04→20:20)
[2024-01-12] MEDS: VITAMIN B-12 500 MCG PO (09:04)
[2024-01-12] MEDS: VITAMIN D3 (cholecalciferol) 25 MCG PO (09:04)
[2024-01-12] MEDS: COZAAR 25 MG PO (09:04)
[2024-01-12] MEDS: LASIX 40 MG PO (09:05)
[2024-01-12] MEDS: DESENEX/MITRAZOL/ZEASORB 1 APPLIC TOPICAL ×2 (09:05→20:20)
[2024-01-12] MEDS: ZOLOFT 25 MG PO (09:23)
[2024-01-12] MEDS: LIPITOR 20 MG PO (09:23)
--- NOTE | 2024-01-12 11:26 | W.PN.HOSP.TC ---
Addendum entered and electronically signed by Samantha Villar MD 01/12/24 13:36:
hypoglycemia on labs - finger stick 78 - patient eating and drinking and not on anti-hyerglycemics; not symptomatic
discussed with RN and will check another BGL in a few hours
Original Note:
Today's Communication/Plan
-
dispo planning, awaiting auth, CM involved
Assessment / Plan
Assessment / Plan
Physical Exam
General: no acute distress
Respiratory: Clear
Cardiac: S1/S2 and Regular Rhythm
GI: Soft, Non Tender, Non Distended and Normal Bowel Sounds
Musculoskeletal: No Clubbing, No Cyanosis,LE swelling improving, legs wrapped
Neuro: AO x 3
Psych: Calm
73 y.o with chronic lymphedema non-compliant with medication regimen coming in with worsening edema, weeping and ambulatory dysfunction. No known history of CHF. Normal renal function. No liver disease. No h/o DVT.
PLAN:
#Lymphedema - with increased LE swelling, not compliant with Lasix and recent travel
-weeping
-s/p lasix 20mg iv q 12 with monitoring of daily weights and i/os - good response --> Ok for DC and transition to SHEEP SHEARER lasix 40mg PO QD
- 4 g sodium restriction
- elevate legs
- compression socks
- wound care
- PT evaluation - SNF
-stop amlodipine
-repeat BMP today
-SHEEP SHEARER K supplementation
# HTN - Uncontrolled, non-compliant
- continue atenolol
- stopped amlodipine, started losartan due to swelling
3.TIA/CVA
- continue aspirin/statin
DVT PPX - lovenox sq
Code Status - Full Code
Anticipated Discharge: 24 - 48 hours
Subjective/Interval History
-
Date of Service: January 12, 2024
no new complaints
oral lasix is working well
no chest pain or shortness of breath
Objective Data
-
Vital Signs:
Vital Signs
Temp Pulse Resp BP Pulse Ox
98.3 F 51 16 106/52 98
01/12/24 08:00 01/12/24 08:00 01/12/24 08:00 01/12/24 08:00 01/12/24 08:00
I&O
01/11/24 01/12/24 01/13/24
06:59 06:59 06:59
Intake Total 200 / 200 960 / 960
Balance 200 / 200 960 / 960
Review of Systems
-
History Source: Patient
All other systems: Reviewed and negative
Data Reviewed
-
Diagnostic Radiology: Report Reviewed by me
Labs: Labs Reviewed by me
[2024-01-12 12:36] LABS: Blood Urea Nitrogen 17 mg/dl (7-17); Calcium 9.7 mg/dl (8.4-10.2); Carbon Dioxide 26 mmol/L (22-30); Chloride 102 mmol/L (98-107); Estimated Creatinine Clearance 80 ml/min; Glucose 47 mg/dl (70-99); Potassium 4.5 mmol/L (3.5-5.1); Sodium 141 mmol/L (135-145); eGFR > 60.00
[2024-01-12 12:42] LABS: Glucose - Point of Care 78 mg/dl (70-99)
[2024-01-12 14:13] LABS: ALT (SGPT) 21 U/L (0-35); AST (SGOT) 32 U/L (14-36); Phosphorus 3.4 mg/dl (2.5-4.5); Total Bilirubin 0.6 mg/dl (0.2-1.3)
[2024-01-12 16:00] VITALS: BP 115/67
[2024-01-12 16:44] LABS: Glucose - Point of Care 97 mg/dl (70-99)
[2024-01-12] MEDS: LOVENOX 40 MG SC (18:11)
[2024-01-12] MEDS: NEURONTIN 400 MG PO (21:28)
[2024-01-12] MEDS: TENORMIN 50 MG PO (21:28)
[2024-01-12 23:00] VITALS: BP 116/57
[2024-01-13 06:00] VITALS: BMI 32.1
[2024-01-13 08:21] VITALS: BP 109/60
[2024-01-13] MEDS: VITAMIN B-12 500 MCG PO (08:59)
[2024-01-13] MEDS: ZOLOFT 25 MG PO (08:59)
[2024-01-13] MEDS: COZAAR 25 MG PO (08:59)
[2024-01-13] MEDS: LOW STRENGTH ASPIRIN 81 MG PO (08:59)
[2024-01-13] MEDS: VITAMIN D3 (cholecalciferol) 25 MCG PO (08:59)
[2024-01-13] MEDS: KCL 20 MEQ PO ×2 (08:59→19:59)
[2024-01-13] MEDS: LASIX 40 MG PO (08:59)
[2024-01-13] MEDS: LIPITOR 20 MG PO (08:59)
[2024-01-13] MEDS: DESENEX/MITRAZOL/ZEASORB 1 APPLIC TOPICAL ×2 (09:02→20:00)
--- NOTE | 2024-01-13 11:44 | W.PN.HOSP.TC ---
Today's Communication/Plan
-
dispo planning
Assessment / Plan
Assessment / Plan
Physical Exam
General: no acute distress
Respiratory: Clear
Cardiac: S1/S2 and Regular Rhythm
GI: Soft, Non Tender, Non Distended and Normal Bowel Sounds
Musculoskeletal: No Clubbing, No Cyanosis,LE swelling improving, legs wrapped
Neuro: AO x 3
Psych: Calm
73 y.o with chronic lymphedema non-compliant with medication regimen coming in with worsening edema, weeping and ambulatory dysfunction. No known history of CHF. Normal renal function. No liver disease. No h/o DVT.
PLAN:
#Lymphedema - with increased LE swelling, not compliant with Lasix and recent travel
-weeping
-s/p lasix 20mg iv q 12 with monitoring of daily weights and i/os - good response --> Ok for DC and transition to SETTLEMENT AGENT lasix 40mg PO QD
- 4 g sodium restriction, K supplementation
- elevate legs
- compression socks
- wound care
- PT evaluation - SNF
-stop amlodipine
-repeat BMP stable
-unfortunately patient remains inpatient with on-going dispo efforts - still waiting for auth - CM looking into it
# HTN - Uncontrolled, non-compliant
- continue atenolol
- stopped amlodipine, started losartan due to swelling
3.TIA/CVA
- continue aspirin/statin
DVT PPX - lovenox sq
Code Status - Full Code
Anticipated Discharge: 24 - 48 hours
Subjective/Interval History
-
Date of Service: January 13, 2024
no new complaints
Objective Data
-
Vital Signs:
Vital Signs
Temp Pulse Resp BP Pulse Ox
97.5 F 49 17 109/60 96
01/13/24 08:21 01/13/24 08:21 01/13/24 08:21 01/13/24 08:21 01/13/24 08:21
I&O
01/12/24 01/13/24 01/14/24
06:59 06:59 06:59
Intake Total 960 / 960 600 / 600
Balance 960 / 960 600 / 600
Review of Systems
-
History Source: Patient
All other systems: Reviewed and negative
Data Reviewed
-
Diagnostic Radiology: Report Reviewed by me
Labs: Labs Reviewed by me
[2024-01-13 13:00] VITALS: BP 105/63; PULSE 48; O2SAT 98
[2024-01-13 15:54] VITALS: BP 91/55
[2024-01-13] MEDS: LOVENOX 40 MG SC (17:34)
[2024-01-13] MEDS: NEURONTIN 400 MG PO (21:46)
[2024-01-13] MEDS: TENORMIN 50 MG PO (21:46)
[2024-01-13 23:00] VITALS: BP 121/48
[2024-01-14 06:00] VITALS: BMI 31.7
[2024-01-14 07:54] VITALS: BP 124/68
[2024-01-14] MEDS: LOW STRENGTH ASPIRIN 81 MG PO (08:28)
[2024-01-14] MEDS: ZOLOFT 25 MG PO (08:28)
[2024-01-14] MEDS: LASIX 40 MG PO (08:28)
[2024-01-14] MEDS: VITAMIN D3 (cholecalciferol) 25 MCG PO (08:28)
[2024-01-14] MEDS: VITAMIN B-12 500 MCG PO (08:28)
[2024-01-14] MEDS: LIPITOR 20 MG PO (08:29)
[2024-01-14] MEDS: COZAAR 25 MG PO (08:29)
[2024-01-14] MEDS: DESENEX/MITRAZOL/ZEASORB 1 APPLIC TOPICAL ×2 (08:29→21:18)
[2024-01-14] MEDS: KCL 20 MEQ PO ×2 (08:29→21:19)
--- NOTE | 2024-01-14 08:55 | W.PN.HOSP.TC ---
Today's Communication/Plan
-
Discharge to short-term rehab when authorization obtained
Assessment / Plan
Assessment / Plan
73 y.o with chronic lymphedema non-compliant with medication regimen coming in with worsening edema, weeping and ambulatory dysfunction. No known history of CHF. Normal renal function. No liver disease. No h/o DVT.
PLAN:
#Lymphedema - with increased LE swelling, not compliant with Lasix and recent travel
- weeping
- s/p lasix 20mg iv q 12 with monitoring of daily weights and i/os - good response --> Ok for DC and transition to CIRCUS HAND lasix 40mg PO QD
- 4 g sodium restriction, K supplementation
- elevate legs
- compression socks
- wound care
- PT evaluation - SNF
- stopped amlodipine
- repeat BMP stable
- unfortunately patient remains inpatient with on-going dispo efforts - still waiting for auth - CM looking into it
# HTN - Uncontrolled, non-compliant
- continue atenolol
- stopped amlodipine, started losartan due to swelling
# TIA/CVA
- continue aspirin/statin
DVT PPX - lovenox sq
Code Status - Full Code
Total time spent to see the patient on the floor, examine the patient, review data and lab results, discuss treatment plan with patient, nursing staff around 35 minutes.
Physical Exam
General: no acute distress
Respiratory: Clear
Cardiac: S1/S2 and Regular Rhythm
GI: Soft, Non Tender, Non Distended and Normal Bowel Sounds
Musculoskeletal: No Clubbing, No Cyanosis,LE swelling improving, legs wrapped
Neuro: AO x 3
Psych: Calm
Anticipated Discharge: Within 24 hours
Subjective/Interval History
-
Date of Service: January 14, 2024
No acute events. No chest pain, no shortness of breath. No fever.
Objective Data
-
Vital Signs:
Vital Signs
Temp Pulse Resp BP Pulse Ox
98.3 F 49 18 124/68 96
01/14/24 07:54 01/14/24 07:54 01/14/24 07:54 01/14/24 07:54 01/14/24 07:54
I&O
01/13/24 01/14/24 01/15/24
06:59 06:59 06:59
Intake Total 600 / 600 840 / 840
Balance 600 / 600 840 / 840
--- NOTE | 2024-01-14 13:36 | CM ---
Clinical information was faxed over to most recent fax provided by account representative. Will f/u with insurance if no return call has been received.
Plan: Case management will continue to follow and assist with discharge planning. Transfer to SNF once auth is obtained.
[2024-01-14 15:06] VITALS: BP 123/58
[2024-01-14 15:45] VITALS: BP 101/61; PULSE 57; O2SAT 99
[2024-01-14] MEDS: LOVENOX 40 MG SC (17:39)
[2024-01-14] MEDS: NEURONTIN 400 MG PO (21:25)
[2024-01-14] MEDS: TENORMIN 50 MG PO (21:25)
[2024-01-14 23:05] VITALS: BP 103/49
[2024-01-15 06:00] VITALS: BMI 31.6
[2024-01-15 07:30] VITALS: BP 106/53
[2024-01-15] MEDS: VITAMIN D3 (cholecalciferol) 25 MCG PO (08:03)
[2024-01-15] MEDS: VITAMIN B-12 500 MCG PO (08:03)
[2024-01-15] MEDS: KCL 20 MEQ PO ×2 (08:03→22:23)
[2024-01-15] MEDS: LIPITOR 20 MG PO (08:03)
[2024-01-15] MEDS: LOW STRENGTH ASPIRIN 81 MG PO (08:03)
[2024-01-15] MEDS: ZOLOFT 25 MG PO (08:04)
[2024-01-15] MEDS: COZAAR 25 MG PO (08:10)
[2024-01-15] MEDS: DESENEX/MITRAZOL/ZEASORB 1 APPLIC TOPICAL ×2 (08:11→22:23)
[2024-01-15] MEDS: LASIX 40 MG PO (08:11)
--- NOTE | 2024-01-15 08:46 | W.PN.HOSP.TC ---
Today's Communication/Plan
-
Discharge to short-term rehab when authorization obtained
Assessment / Plan
Assessment / Plan
73 y.o with chronic lymphedema non-compliant with medication regimen coming in with worsening edema, weeping and ambulatory dysfunction. No known history of CHF. Normal renal function. No liver disease. No h/o DVT.
PLAN:
#Lymphedema - with increased LE swelling, not compliant with Lasix and recent travel
- weeping
- s/p lasix 20mg iv q 12 with monitoring of daily weights and i/os - good response --> Ok for DC and transition to COLLECTION TELLER lasix 40mg PO QD
- 4 g sodium restriction, K supplementation
- elevate legs
- compression socks
- wound care
- PT evaluation - SNF
- stopped amlodipine
- repeat BMP stable
- patient remains inpatient with on-going dispo efforts - still waiting for auth - CM looking into it
# HTN - Uncontrolled, non-compliant
- continue atenolol
- stopped amlodipine, started losartan due to swelling
# TIA/CVA
- continue aspirin/statin
DVT PPX - lovenox sq
Code Status - Full Code
Total time spent to see the patient on the floor, examine the patient, review data and lab results, discuss treatment plan with patient, nursing staff around 36 minutes.
Physical Exam
General: no acute distress
Respiratory: Clear
Cardiac: S1/S2 and Regular Rhythm
GI: Soft, Non Tender, Non Distended and Normal Bowel Sounds
Musculoskeletal: No Clubbing, No Cyanosis,LE swelling improving, legs wrapped
Neuro: AO x 3
Psych: Calm
Anticipated Discharge: Today
Subjective/Interval History
-
Date of Service: January 15, 2024
Denies chest pain, shortness of breath, or problems breathing. No fever, no vomiting.
Objective Data
-
Vital Signs:
Vital Signs
Temp Pulse Resp BP Pulse Ox
97.9 F 48 16 106/53 99
01/15/24 07:30 01/15/24 08:11 01/15/24 07:30 01/15/24 08:11 01/15/24 07:30
I&O
01/14/24 01/15/24 01/16/24
06:59 06:59 06:59
Intake Total 840 / 840 1080 / 1080
Balance 840 / 840 1080 / 1080
--- NOTE | 2024-01-15 10:09 | CM ---
Addendum entered by KAYKAY Qureshi 01/15/24 16:00:
Received call from Scott in admissions at [facility] who stated that family has called them, and although they initially stated that no bed would be available, they will have a bed for patient as soon as she gets the auth.
NPIs for [facility]: [id number] Dr. Coleman [id number]
Will switch facilities when call as been received by Maryse.
Addendum entered by KAYKAY Qureshi 01/15/24 12:24:
Clinical was both faxed manually and virtually [facility] to [facility] for review. Per website clinical in pending status.
Original Note:
Placed another call to [facility] as no auth has yet been received. Spoke with a strategic partnership representative named, Mera Foote who provided reference for the call #[id number].
She asked that all clinical be re-faxed to [phone]
Explanation was provided that has tried multiple times to obtain authorization and every time there is a call to get an update, representatives are stating that no clinical was received. Mera was asked if the claim could be escalated as efforts
have been ongoing since last Sunday. Mera stated that she will escalate case. She stated that she would not be able to provide an employee ID but reference # above.
Pending Auth#- [id number]
Will fax all clinical and updates.
Plan: Case management will continue to follow and assist with discharge planning. Hopeful transfer to [facility] once auth is obtained.
[2024-01-15 14:45] VITALS: BP 108/53
[2024-01-15] MEDS: LOVENOX 40 MG SC (17:50)
[2024-01-15] MEDS: NEURONTIN 400 MG PO (22:23)
[2024-01-15] MEDS: TENORMIN 50 MG PO (22:28)
[2024-01-15 23:53] VITALS: BP 106/81
[2024-01-16 06:00] VITALS: BMI 32.1
--- NOTE | 2024-01-16 07:28 | W.PN.HOSP.TC ---
Today's Communication/Plan
-
Discharge to short-term rehab tomorrow
Assessment / Plan
Assessment / Plan
73 y.o with chronic lymphedema non-compliant with medication regimen coming in with worsening edema, weeping and ambulatory dysfunction. No known history of CHF. Normal renal function. No liver disease. No h/o DVT.
PLAN:
#Lymphedema - with increased LE swelling, not compliant with Lasix and recent travel
- weeping
- s/p lasix 20mg iv q 12 with monitoring of daily weights and i/os - good response --> Ok for DC and transition to PUBLISHING EDITOR lasix 40mg PO QD
- 4 g sodium restriction, K supplementation
- elevate legs
- compression socks
- wound care
- PT evaluation - SNF
- stopped amlodipine
- repeat BMP stable
- discharge to short-term rehab tomorrow
# HTN - Uncontrolled, non-compliant
- continue atenolol
- stopped amlodipine, started losartan due to swelling
# TIA/CVA
- continue aspirin/statin
DVT PPX - lovenox sq
Code Status - Full Code
Total time spent to see the patient on the floor, examine the patient, review data and lab results, discuss treatment plan with patient, nursing staff around 35 minutes.
Physical Exam
General: no acute distress
Respiratory: Clear
Cardiac: S1/S2 and Regular Rhythm
GI: Soft, Non Tender, Non Distended and Normal Bowel Sounds
Musculoskeletal: No Clubbing, No Cyanosis,LE swelling improving, legs wrapped
Neuro: AO x 3
Psych: Calm
Anticipated Discharge: Within 24 hours
Subjective/Interval History
-
Date of Service: January 16, 2024
No acute events. No chest pain, shortness of breath, palpitations. No fever, no vomiting.
Objective Data
-
Vital Signs:
Vital Signs
Temp Pulse Resp BP Pulse Ox
98.0 F 50 20 106/81 94
01/15/24 23:53 01/15/24 23:53 01/15/24 23:53 01/15/24 23:53 01/15/24 23:53
I&O
01/15/24 01/16/24 01/17/24
06:59 06:59 06:59
Intake Total 1080 / 1080 840 / 840
Balance 1080 / 1080 840 / 840
[2024-01-16 07:30] VITALS: BP 111/60
[2024-01-16] MEDS: ZOLOFT 25 MG PO (08:27)
[2024-01-16] MEDS: LOW STRENGTH ASPIRIN 81 MG PO (08:27)
[2024-01-16] MEDS: KCL 20 MEQ PO ×2 (08:27→19:50)
[2024-01-16] MEDS: LIPITOR 20 MG PO (08:27)
[2024-01-16] MEDS: LASIX 40 MG PO (08:27)
[2024-01-16] MEDS: VITAMIN D3 (cholecalciferol) 25 MCG PO (08:27)
[2024-01-16] MEDS: VITAMIN B-12 500 MCG PO (08:27)
[2024-01-16] MEDS: COZAAR 25 MG PO (08:29)
[2024-01-16] MEDS: DESENEX/MITRAZOL/ZEASORB 1 APPLIC TOPICAL ×2 (08:31→19:50)
--- NOTE | 2024-01-16 11:31 | CM ---
Addendum entered by KAYKAY Qureshi 01/16/24 12:38:
Met with patient to review below information. She confirmed that her son will be in to pick her up. Attending updated as well.
Original Note:
Placed a call to [facility] to f/u regarding hopeful authorization. Spoke with a account executive sales representative named, Lois, who stated that the auth was approved but gave dates 01/20-01/27. Explanation was provided that patient is medically stable for discharge and
she has now been accepted at [facility]. Threader Operator stated that auth would have to be reinitiated as if it was new because of the facility change. Rep was asked why they can't just update the facility as auth has been provided. She was unable to
answer.
Fax was received during call with Lois, from '[employer] Thao ESCAMILLAN RN. There was a number at bottom of fax to call for concurrent review. Disconnected from [facility]. Placed a call to [phone] and call was answered by
Thao who stated that patient has been approved from 01/15-NRD 01/22-LCD 01/21. Thao was advised that the patient/family wants [facility] now. She took the NPIs, switched them out and issued same approval of-[id number] skilled level 1
for the same dates as above.
Placed a call to [facility] in admissions to update. She stated that she will have a bed available in the am and requested that transport be set up today for tomorrow.
#For report [phone] .
Placed a call to patient's daughter to update. She is agreeable and stated that her spouse will be in patient's room by 9:30 to transport her to [facility]. She understands that time that she can leave will still be subject to medical staff.
Plan: Case management will continue to follow and assist with discharge planning. [facility], bed available tomorrow. Will update RN and attending MD. Patient's son in law will transport.
[2024-01-16 13:46] VITALS: BP 124/57; PULSE 51; O2SAT 99
[2024-01-16 16:00] VITALS: BP 104/60
[2024-01-16] MEDS: LOVENOX 40 MG SC (17:11)
[2024-01-16] MEDS: NEURONTIN 400 MG PO (22:55)
[2024-01-16] MEDS: TENORMIN 50 MG PO (22:56)
[2024-01-16 23:05] VITALS: BP 114/66
[2024-01-17 06:00] VITALS: BMI 31.7
[2024-01-17 07:36] VITALS: BP 106/48
--- NOTE | 2024-01-17 08:19 | W.PN.HOSP.TC ---
Today's Communication/Plan
-
Discharge to short-term rehab today
Assessment / Plan
Assessment / Plan
73 y.o with chronic lymphedema non-compliant with medication regimen coming in with worsening edema, weeping and ambulatory dysfunction. No known history of CHF. Normal renal function. No liver disease. No h/o DVT.
PLAN:
#Lymphedema - with increased LE swelling, not compliant with Lasix and recent travel
- weeping
- s/p lasix 20mg iv q 12 with monitoring of daily weights and i/os - good response --> Ok for DC and transition to [employer] lasix 40mg PO QD
- 4 g sodium restriction, K supplementation
- elevate legs
- compression socks
- wound care
- PT evaluation - SNF
- stopped amlodipine
- repeat BMP stable
- discharge to short-term rehab today
# HTN - Uncontrolled, non-compliant
- continue atenolol
- stopped amlodipine, started losartan due to swelling
# TIA/CVA
- continue aspirin/statin
DVT PPX - lovenox sq
Code Status - Full Code
Physical Exam
General: no acute distress
Respiratory: Clear
Cardiac: S1/S2 and Regular Rhythm
GI: Soft, Non Tender, Non Distended and Normal Bowel Sounds
Musculoskeletal: No Clubbing, No Cyanosis,LE swelling improving, legs wrapped
Neuro: AO x 3
Psych: Calm
Anticipated Discharge: Today
Subjective/Interval History
-
Date of Service: January 17, 2024
No acute events. Denies chest pain, shortness of breath. No fever, no vomiting. Eager for discharge today.
Objective Data
-
Vital Signs:
Vital Signs
Temp Pulse Resp BP Pulse Ox
97.7 F 48 17 106/48 97
01/17/24 07:36 01/17/24 07:36 01/17/24 07:36 01/17/24 07:36 01/17/24 07:36
I&O
01/16/24 01/17/24 01/18/24
06:59 06:59 06:59
Intake Total 840 / 840 1440 / 1440
Balance 840 / 840 1440 / 1440
[2024-01-17] MEDS: VITAMIN B-12 500 MCG PO (08:56)
[2024-01-17] MEDS: KCL 20 MEQ PO (08:56)
[2024-01-17] MEDS: LIPITOR 20 MG PO (08:57)
[2024-01-17] MEDS: LOW STRENGTH ASPIRIN 81 MG PO (08:57)
[2024-01-17] MEDS: LASIX 40 MG PO (08:57)
[2024-01-17] MEDS: VITAMIN D3 (cholecalciferol) 25 MCG PO (08:57)
[2024-01-17] MEDS: DESENEX/MITRAZOL/ZEASORB 1 APPLIC TOPICAL (08:57)
[2024-01-17] MEDS: ZOLOFT 25 MG PO (08:57)
[2024-01-17] MEDS: COZAAR 25 MG PO (08:57)
--- NOTE | 2024-01-17 15:23 | W.DCSUMMARY ---
Discharge Summary
Discharge Data
Date of Admission: 01/07/24
Date of Discharge: 01/17/24
-
Pending Results: No
Hospital Course
Disposition : SNF
Principal Discharge diagnosis : Lower extremity swelling in setting of lymphedema and non-compliance with lasix leading to ambulatory dysfunction
Hospital Course :
This is a 73-year-old female with past medical history of hypertension, hyperlipidemia, obesity, chronic lower extremity edema who presents emergency department with increasing leg swelling and weeping. She reports being non-compliant with lasix.
No respiratory complaints. Work-up in past negative for CHF or VTE.
Triage vitals and labs stable. She was admitted to medicine and given IV lasix. Swelling and weakness improved. Labs remained stable. She is discharged to SNF, resuming her [employer] oral lasix.
Her amlodipine was stopped and replaced with Losartan given swelling.
Time spent on discharge was 31 minutes.
Discharge Plan
-
Patient Disposition: Shelter/SNF
Discharge Diagnosis/Procedures: Bilateral lower extremity lymphedema/swelling resulting in weakness and ambulatory dysfunction
Diet: 2 Gram Sodium and Restrict fluids to 48 oz
Activity: As tolerated
Driving Restrictions: Not until seen by your Dr
Bathing Restrictions: None
Blood Work: BMP with your PCP in 1 week
Other Services: PT and OT
Specialty Instructions: Weigh Daily- Call MD for wt gain/loss 3 lbs overnight/5 lbs in 1 week
Activity Restrictions/Additional Instructions:
Wound Care Instructions Bilateral LE posterior wounds- Clean with normal saline or soap and water. Apply alginate and silicone foam. Change Q 48 hours and PRN if loose or for drainage.
[facility] holistic health practitioner, on in AM and off in PM
Locate a lymphedema clinic in the [place] area.
Referrals:
UNKNOWN,NO INTERVIEW [Family Provider] - in less than 1 week
Additional Discharge Medication Instructions: Stop Amlodipine (this can contribute to lower extremity swelling). You are started on a new blood pressure pill, Losartan. We will get labs to monitor electrolytes in one week.
Resume Lasix.
Prescriptions:
New
miconazole nitrate [Miconazorb AF] 2 % Powder
1 applic topical BID Qty: 85 0RF
losartan 25 mg Tablet
25 mg PO DAILY Qty: 30 0RF
acetaminophen 325 mg Tablet
650 mg PO Q4HPRN PRN (Reason: mild pain/MANN/temp> 100.4F) Qty: 30 0RF
Continued
furosemide 40 mg Tablet
40 mg PO DAILY
atorvastatin 20 mg Tablet
20 mg PO DAILY
gabapentin 400 mg Capsule
400 mg PO HS
cyanocobalamin (vitamin B-12) 500 mcg Tablet
500 mcg PO DAILY
sertraline 25 mg Tablet
25 mg PO DAILY
atenolol 50 mg Tablet
50 mg PO HS
cholecalciferol (vitamin D3) 25 mcg (1,000 unit) Tablet
25 mcg PO DAILY
melatonin 10 mg Tablet
10 mg PO HS PRN (Reason: insomnia)
potassium chloride 20 mEq Tablet,Er Particles/Crystals
20 meq PO BID
aspirin 81 mg Tablet,Chewable
81 mg PO DAILY
Discontinued
amlodipine 5 mg Tablet
5 mg PO DAILY
Discharge Orders:
Discharge Patient (As Directed); Ordered 01/08/24
Ordered By: Samantha Villar
Discharge Date and Time
Discharge Date/Time: 01/17/24 10:24
Print Language: BULGARIAN
== END 2024-01-17 10:24 | DRG 607 ==
LOC: 3 WEST ACU 11:02
PROVIDERS: Emergency Medicine; Internal Medicine; Student in an Organized Health Care Education/Training Program; ADMITTING PHYSICIAN Internal Medicine; ATTENDING PHYSICIAN Family Medicine; EMERGENCY PHYSICIAN Emergency Medicine
DX: I89.0 Lymphedema, not elsewhere classified (principal); Z91.148 Patient's other noncompliance with medication regimen for other reason; I10 Essential (primary) hypertension; Z86.73 Personal history of transient ischemic attack (TIA), and cerebral infarction without residual deficits
CPT/HCPCS: 80048; 80053; 82247; 82962; 83605; 83735; 83880; 84100; 84450; 84460; 85025; 85027; 87070; 90662; 96374; 97116; 97162; 97530; 99284; G0008

== ENCOUNTER → 2024-01-24 11:33 | Outpatient (REF) | payer OTHER, SELFPAY ==
[2024-01-24 12:11] LABS: Blood Urea Nitrogen 15 mg/dl (7-17); Calcium 9.2 mg/dl (8.4-10.2); Carbon Dioxide 26 mmol/L (22-30); Chloride 104 mmol/L (98-107); Glucose 95 mg/dl (70-99); Potassium 4.5 mmol/L (3.5-5.1); Sodium 140 mmol/L (135-145); eGFR > 60.00
== END ==
LOC: OLABN 11:33
PROVIDERS: ATTENDING PHYSICIAN Student in an Organized Health Care Education/Training Program
DX: R60.9 Edema, unspecified (principal); I10 Essential (primary) hypertension
CPT/HCPCS: 36415; 80048

== ENCOUNTER → 2024-01-28 09:45 | Outpatient (REF) | payer OTHER, SELFPAY ==
[2024-01-28 10:41] LABS: Glycohemoglobin (HgbA1c) 5.4 % (4.0-5.6)
== END ==
LOC: OLABN 09:45
PROVIDERS: ATTENDING PHYSICIAN Student in an Organized Health Care Education/Training Program
DX: R73.01 Impaired fasting glucose (principal)
CPT/HCPCS: 36415; 83036